=== PATIENT | female | born 1980 | race Caucasian/White ===

== ENCOUNTER 2017-03-26 18:15 | Emergency (ER) | payer SELFPAY ==
[~2017-03-26] VITALS: Ht 154.9 cm; Wt 79.1 kg
[2017-03-26 19:28] VITALS: BP 107/73
== END 2017-03-26 19:28 | disposition home or self-care (01) ==
LOC: ED 18:15
DX: R07.89 Other chest pain (principal); F17.210 Nicotine dependence, cigarettes, uncomplicated

== ENCOUNTER 2020-03-14 19:23 | Emergency (ER) | payer SELFPAY ==
[~2020-03-14] VITALS: Ht 157.5 cm; Wt 81.8 kg
[2020-03-14 20:17] LABS: BASO # 0.1 (0.02-0.10); EOS # 0.6 (0.04-0.40); EOS % 4.5 % (1.0-5.0); HEMATOCRIT 46.2 % (37.0-47.0); HEMOGLOBIN 15.5 g/dL (12.5-16.0); LYMPH# 3.2 (1.50-4.00); MEAN CELL VOLUME 97 fl (78-100); MEAN CORPUSCULAR HEMOGLOBIN 33 pg (27-31); MEAN CORPUSCULAR HGB CONC 34 g/dL (33-37); MEAN PLATELET VOLUME 10.1 fl (7.4-10.4); NEU # 7.5 (1.40-6.50); PLATELET COUNT 329 K/mm3 (130-400); RED BLOOD COUNT 4.77 M/mm3 (4.10-5.30); RED CELL DISTRIBUTION WIDTH 13.6 % (11.5-14.5); WHITE BLOOD COUNT 12.4 K/mm3 (4.8-10.8)
[2020-03-14 21:10] VITALS: BP 123/78
[2020-03-14 21:16] LABS: ERYTHROCYTE SEDIMENTATION RATE 18 mm/hr (0-20)
== END 2020-03-14 21:10 | disposition home or self-care (01) ==
LOC: ED 19:23
PROVIDERS: Family Medicine
DX: M77.11 Lateral epicondylitis, right elbow (principal); F17.200 Nicotine dependence, unspecified, uncomplicated; Z79.1 Long term (current) use of non-steroidal anti-inflammatories (NSAID)
CPT/HCPCS: J1885

== ENCOUNTER 2021-03-22 11:13 | Emergency (ER) | payer OTHER ==
[2021-03-22 11:55] LABS: BASO # 0.05 K/mm3 (0.02-0.10); EOS # 0.17 K/mm3 (0.04-0.40); EOS % 0.9 % (1.0-5.0); HEMATOCRIT 45.5 % (37.0-47.0); HEMOGLOBIN 14.9 g/dL (12.5-16.0); LYMPH# 2.31 K/mm3 (1.50-4.00); MEAN CELL VOLUME 99 fl (78-100); MEAN CORPUSCULAR HEMOGLOBIN 32 pg (27-31); MEAN CORPUSCULAR HGB CONC 33 g/dL (33-37); MEAN PLATELET VOLUME 9.8 fl (7.4-10.4); MONO # 1.03 K/mm3 (0.20-0.80); NEU # 15.22 K/mm3 (1.40-6.50); PLATELET COUNT 326 K/mm3 (130-400); RED BLOOD COUNT 4.62 M/mm3 (4.10-5.30); RED CELL DISTRIBUTION WIDTH 12.9 % (11.5-14.5); WHITE BLOOD COUNT 18.8 K/mm3 (4.8-10.8)
[2021-03-22 12:03] LABS: URINE APPEARANCE CLOUDY; URINE BILIRUBIN NEGATIVE (NEGATIVE); URINE BLOOD 250 ery/uL (NEGATIVE); URINE COLOR YELLOW; URINE GLUCOSE NEGATIVE (NEGATIVE); URINE KETONE NEGATIVE (NEGATIVE); URINE LEUKOCYTE ESTERASE 2+ (NEGATIVE); URINE NITRATE POSITIVE (NEGATIVE); URINE PROTEIN(semi-quant) 3+ mg/dL (NEGATIVE); URINE UROBILINOGEN NORMAL (NORMAL); URINE WBC >50 /hpf (0-3)
[2021-03-22 12:08] LABS: POTASSIUM 3.8 mmol/L (3.5-5.1)
[2021-03-22 12:09] LABS: CALCIUM 9.8 mg/dL (8.3-10.5)
[2021-03-22 12:10] LABS: TOTAL PROTEIN 7.3 g/dL (6.4-8.3)
[2021-03-22 12:12] LABS: TOTAL BILIRUBIN 0.6 mg/dL (0.2-1.2)
[2021-03-22] MEDS ORDERED: CEPHALEXIN500 M1 PO (14:47)
[2021-03-22] MEDS ORDERED: NORCO 325 MG-51 TA1 PO (14:47)
[2021-03-22 15:10] VITALS: BP 116/74
== END 2021-03-22 14:57 | disposition home or self-care (01) ==
LOC: ED 11:13
PROVIDERS: Nurse Practitioner
DX: N12 Tubulo-interstitial nephritis, not specified as acute or chronic (principal); F17.200 Nicotine dependence, unspecified, uncomplicated
CPT/HCPCS: J0696; J1885; J2405; J3010; J7030; Q9967

== ENCOUNTER → 2021-06-26 | Outpatient (CLI) | payer OTHER ==
[~2021-06-26] MED LIST: CEPHALEXIN500 M1 PO; NORCO 325 MG-51 TA1 PO
== END ==
LOC: LAB 16:02
DX: Z20.822 Contact with and (suspected) exposure to COVID-19 (principal)

== ENCOUNTER → 2022-02-16 | Outpatient (CLI) | payer OTHER | LOC: MAMMO 14:06 | DX: Z12.31 Encounter for screening mammogram for malignant neoplasm of breast (principal); N63.11 Unspecified lump in the right breast, upper outer quadrant ==

== ENCOUNTER → 2022-02-24 | Outpatient (CLI) | payer OTHER | LOC: RAD 12:58 | DX: N60.01 Solitary cyst of right breast (principal) ==

== ENCOUNTER → 2022-02-28 | Outpatient (CLI) | payer OTHER | LOC: RAD 08:10 | DX: N64.59 Other signs and symptoms in breast (principal) | CPT/HCPCS: 15989; 15990; A4648 ==